=== PATIENT | female | born 1970 | race Caucasian/White ===

== ENCOUNTER 2019-05-10 08:46 | Inpatient (IN) ==
[2019-05-04 17:47] LABS: Appearance,Urine CLEAR; Bacteria,Urine 0 /hpf (0); Bilirubin,Urine NEG (NEG); Color,Urine YELLOW; Culture Indicated,Urine NO; Glucose,Urine (UA) NEGATIVE (NEG); Ketones,Urine NEG (NEG); Leukocyte Esterase,Urine NEG /uL (NEG); Mucus,Urine MANY /hpf (0); Nitrate,Urine NEG (NEG); Protein,Urine NEG (NEG); Urine Blood 0.2 mg/dL (<0.03); Urine RBC < 1 /hpf (0-1); Urine Squamous Epithelial Cell 3 /hpf (0-4); Urine WBC 1 /hpf (0-4); Urobilinogen,Urine NEG (NEG)
[2019-05-04 19:03] LABS: Basophils # (Auto) 0.05 K/mcL (0.00-0.30); Basophils % (Auto) 0.7 % (0.0-2.0); Eosinophils # (Auto) 0.09 K/mcL (0.00-0.70); Eosinophils % (Auto) 1.2 % (0.0-7.0); Granulocytes % (Auto) 62.3 % (38.0-78.0); Hematocrit 40.3 % (34.1-44.9); Lymphocytes % (Auto) 27.3 % (15.5-49.0); Mean Cell Volume 98.3 fL (80.0-100.0); Mean Corpuscular HGB Conc 32.3 g/dL (31.0-36.0); Mean Platelet Volume 10.3 fL (7.4-10.4); Monocytes # (Auto) 0.62 K/mcL (0.10-0.90); Monocytes % (Auto) 8.5 % (1.0-12.0); Platelet Count 279 K/mcL (140-440); Red Cell Distribution Width 11.8 % (11.5-14.5); WBC 7.3 K/mcL (4.50-11.00)
[2019-05-04 20:03] LABS: Blood Urea Nitrogen 11 mg/dl (6-20); Calcium 9.6 mg/dl (8.6-10.4); Carbon Dioxide 26 mmol/L (22-30); Chloride 102 mmol/L (96-108); Glomerular Filtration Rate 66; Glucose 92 mg/dL (70-105)
[2019-05-05 02:46] LABS: Estimated Average Glucose(eAG) 108 mg/dL; Hemoglobin A1C 5.4 % HGB (4.0-6.0)
[~2019-05-10 08:46] MED LIST: CELECOXIB 200 MG CAPSULE PO SCH; PREGABALIN 75 MG CAPSULE PO SCH; VANCOMYCIN 1,000 MG in 0.9 % SODIUM CHLORIDE 250 ML IV SCH; oxyCODONE 10 MG TAB.ER.12H PO SCH
[2019-05-10] MEDS ORDERED: ONDANSETRON 4 MG/2 ML VIAL IV ONE (11:10)
[2019-05-10] MEDS ORDERED: GLYCOPYRROLATE 0.2 MG/ML VIAL IV ONE (11:10)
[2019-05-10] MEDS ORDERED: PHENYLEPHRINE 10 MG/ML VIAL IV ONE (11:10)
[2019-05-10] MEDS ORDERED: PROPOFOL 200 MG/20 ML VIAL IV ONE (11:10)
[2019-05-10] MEDS ORDERED: KETAMINE 100 MG/ML ML IV ONE (11:10)
[2019-05-10] MEDS ORDERED: MIDAZOLAM 2 MG/2 ML VIAL IV ONE (11:10)
[2019-05-10] MEDS ORDERED: LIDOCAINE HCL/PF 100 MG/5 ML SYRINGE IV ONE (11:10)
[2019-05-10] MEDS ORDERED: TRANEXAMIC ACID 1,000 MG/10 ML VIAL IV ONE ×2 (11:10→12:35)
[2019-05-10] MEDS ORDERED: DEXAMETHASONE 10 MG/ML VIAL IV ONE (11:10)
[2019-05-10] MEDS ORDERED: ePHEDrine 50 MG/ML AMPUL IV ONE (11:10)
[2019-05-10] MEDS ORDERED: SUCCINYLCHOLINE 20 MG/ML ML IV ONE (11:10)
[2019-05-10] MEDS ORDERED: fentaNYL 100 MCG/2 ML VIAL IV ONE (11:10)
[2019-05-10] MEDS ORDERED: TEMAZEPAM 15 MG CAPSULE PO PRN (12:35)
[2019-05-10] MEDS ORDERED: POLYETHYLENE GLYCOL 3350 17 GM PACKET PO PRN (12:35)
[2019-05-10] MEDS ORDERED: BISACODYL 10 MG SUPP.RECT PR PRN (12:35)
[2019-05-10] MEDS ORDERED: BENZOCAINE/MENTHOL 1 LOZENGE PO PRN (12:35)
[2019-05-10] MEDS ORDERED: HYDROmorphone 2 MG/ML VIAL IV PRN (12:35)
[2019-05-10] MEDS ORDERED: MAGNESIUM HYDROXIDE 30 ML ORAL.SUSP PO PRN (12:35)
[2019-05-10] MEDS ORDERED: FLEETS ADULT ENEMA PR PRN (12:35)
[2019-05-10] MEDS ORDERED: ONDANSETRON 4 MG/2 ML VIAL IV PRN ×2 (12:35→13:07)
--- NOTE | 2019-05-10 12:35 | Brief Operative Note ---
Date of procedure: 05/10/19 Pre-op diagnosis: Right hip DJD Post-op diagnosis: same Procedure: Right anterior total hip arthroplasty Grafts/Implants: Yes (Depuy Actis 6 hi offset, +1 32 head, 50 cup, neutral liner) Anesthesia: spinal, GLMA Findings: arthritis Complications: none Surgeon: Ricki Marian Locomotive Supervisor: Isaiah Donnelly Estimated blood loss (cc): 300 Specimens Removed/Pathology: none sent Condition: stable Disposition: PACU
[2019-05-10] MEDS ORDERED: traMADol 50 MG TABLET PO PRN (12:38)
[2019-05-10] MEDS ORDERED: ceFAZolin 1 GM VIAL IV SCH (12:45)
--- NOTE | 2019-05-10 12:53 | XRay Report ---
CLINICAL INFORMATION: Intraoperative fluoroscopy and spot films TECHNIQUE: 0.2 minutes fluoroscopy utilized by Dr. Marina. Intraoperative spot films obtained FINDINGS: Intraoperative fluoroscopy and spot films utilized. Right total hip arthroplasty performed IMPRESSION: Intraoperative spot films and fluoroscopy as above Interpreted and Authenticated by: Tee Martinez 05/10/19
[2019-05-10] MEDS ORDERED: fentaNYL 100 MCG/2 ML VIAL IV PRN (13:07)
[2019-05-10] MEDS ORDERED: ACETAMINOPHEN 1,000 MG/100 ML BOTTLE IV ONE (13:07)
[2019-05-10] MEDS ORDERED: IPRATROPIUM/ALBUTEROL 3 ML AMPUL.NEB NEB PRN (13:07)
--- NOTE | 2019-05-10 13:13 | Operative Note ---
DATE OF OPERATION: 05/10/2019 PREOPERATIVE DIAGNOSIS: Right hip degenerative joint disease. POSTOPERATIVE DIAGNOSIS: Right hip degenerative joint disease. PROCEDURE PERFORMED: Right anterior total hip arthroplasty placing a DePuy Actis size 6 high offset femoral stem, +1 32 mm delta ceramic head ball, a 50 Colony cup a third neutral AltrX liner. SURGEON: Ricki Marina MD COUNTER ATTENDANT: Jose Donnelly PA-C. This provider's expertise and technical skill were required throughout the case. The PA assisted with preoperative coordination, intraoperative retraction, wound closure, dressing and splint application, as well as postoperative documentation and care coordination. ANESTHESIA: Spinal plus general. DRAINS: None. SPECIMENS: Femoral head which was discarded. BLOOD LOSS: 300 mL COMPLICATIONS: None. POSTOPERATIVE CONDITION: Stable. INDICATIONS FOR SURGERY: A 49-year-old female who has had longstanding progressive worsening severe right hip pain. Radiographs showed degenerative arthrosis with spurring. FINDINGS AT SURGERY: As above. Post implantation showed good overall component position with only mild limb lengthening. PROCEDURE IN DETAIL: The patient had been seen preoperatively. Informed consent obtained after discussion of risks and benefits of surgery. Risks including, but not limited to, bleeding; infection; injury to nerves, blood vessels, and other surrounding structures; anesthetic risks; incomplete or no resolution of symptoms; leg length discrepancy; dislocation; fracture; DVT and pulmonary embolus risks; and the possibility of needing further revision joint surgery. The patient understood these risks and wished to proceed. Correct operative site was marked and then spinal anesthesia given. The patient was then taken to the operating room and LMA general given. The patient was carefully transferred to the fracture table and then the operative hip was carefully prepped and draped in normal sterile fashion. Timeout was performed verifying patient name, operative site, and plan. Ioban was used to cover all skin surfaces. A standard anterior approach incision was made with a scalpel through skin and subcutaneous tissue. Hemostasis was obtained with Bovie cautery. Careful blunt dissection was taken down on the tensor fascia and then this was undermined circumferentially. IrriSept was irrigated and a ring retractor placed. Tensor fascia was incised in line with muscle fibers and then careful blunt dissection taken medial to the muscle belly. Blunt cobra retractors were placed on the superior and inferior femoral neck and then circumflex vessels were coagulated and cut and vastus fascia split distally. Anterior capsulectomy was performed and then the capsule releases. Corkscrew was placed in the femoral head. Prior to placement of the corkscrew we did take x-rays for joint point. Once a corkscrew was placed we used fluoroscopy to identify our approximate neck cut trajectory and then our femoral neck was cut with oscillating tip saw. Femoral head was removed and the acetabulum exposed. Labrum was excised circumferentially as well as soft tissue from the floor. We then irrigated with IrriSept. We then began sequentially reaming until 1 mm smaller than the final implant. We then opened the acetabular component. IrriSept was irrigated, after a minute pulse lavaged with saline and then the cup was impacted using the [id number]. Joint point was used to verify satisfactory cup position. A center hole cover was placed and then the acetabular liner was carefully aligned and impacted and carefully verified to be fully seated. We then released traction. The leg was externally rotated and released capsule around the medial neck. The leg was then extended and adducted. Capsule was released out towards greater trochanter and then the proximal femur was exposed. Box osteotome was used to gain canal entry and an awl was used to identify canal trajectory. Rongeur and rasp were used to lateralize and then we began sequentially broaching up to the final size. We calcar planed down onto the broach and then the neck trial and head ball were placed. The hip was reduced. Fluoro was brought in and x-rays taken, joint point was used to verify satisfactory position. We then re-dislocated and removed the trial implants. Definitive implants were opened. We then irrigated the femoral canal with IrriSept again, after a minute pulse lavaged with saline. The final stem was impacted and seated. We then opened the head ball. The stem was carefully cleaned and dried and the head ball was impacted. We then reduced the hip with satisfactory tension. Final fluoro images were taken and saved. We irrigated the joint with IrriSept, after a minute pulse lavaged with saline again and then closed the tensor fascia with two running #1 Vicryls, one running proximal, one running distal and a ring retractor was removed. Final IrriSept irrigation was done, after a minute final pulse lavage, and then fat was tacked to fascia with Vicryl and then 2-0 Monocryl for subcutaneous and venus for skin. Xeroform and sterile dressing were applied. The patient was then awakened, extubated, and transferred to recovery in stable condition. BJB:aniceto Job ID: [id number] Doc ID: [id number] Ricki Marina MD
[2019-05-10] MEDS ORDERED: LACTATED RINGERS 1,000 ML IV SCH (13:15)
--- NOTE | 2019-05-10 13:37 | XRay Report ---
CLINICAL INFORMATION: Postsurgical follow-up TECHNIQUE: AP pelvis. AP and cross table lateral right hip COMPARISON: Previous plain film examination dated 10/14/2017 FINDINGS: Status post right total hip arthroplasty. Normal anatomic alignment demonstrated. There is postsurgical gas. There are skin venus overlying the right hip IMPRESSION: Right total hip arthroplasty Interpreted and Authenticated by: Tee Martinez 05/10/19
[2019-05-10] MEDS: KETOROLAC 30 MG/ML VIAL IV PRN ×2 (13:38→20:43)
[2019-05-10] MEDS: 0.9 % SODIUM CHLORIDE 10 ML SYRINGE IV SCH ×2 (13:57→22:34)
[2019-05-10] MEDS: 0.9 % SODIUM CHLORIDE 1,000 ML IV SCH ×2 (14:07→22:07)
[2019-05-10] MEDS: oxyCODONE/APAP 5/325MG TABLET PO PRN ×2 (14:32→18:15)
[2019-05-10] MEDS: METHOCARBAMOL 750 MG TABLET PO PRN (15:47)
[2019-05-10] MEDS ORDERED: SENNOSIDES 1 TABLET PO SCH (21:00)
[2019-05-10] MEDS: buPROPion 150 MG TAB.SR.12H PO SCH (21:01)
[2019-05-10] MEDS: Methylphenidate Hcl [Ritalin] 20 mg Tab PO SCH (21:02)
[2019-05-10] MEDS: ASPIRIN 81 MG TAB.CHEW PO SCH (21:02)
[2019-05-10] MEDS: DOCUSATE SODIUM 100 MG CAPSULE PO SCH (21:02)
[2019-05-10] MEDS ORDERED: VANCOMYCIN 1,000 MG in 0.9 % SODIUM CHLORIDE 250 ML IV ONE (22:30)
[2019-05-11] MEDS: KETOROLAC 30 MG/ML VIAL IV PRN (04:31)
[2019-05-11] MEDS: METHOCARBAMOL 750 MG TABLET PO PRN (04:43)
[2019-05-11] MEDS: 0.9 % SODIUM CHLORIDE 1,000 ML IV SCH (04:51)
[2019-05-11] MEDS: oxyCODONE/APAP 5/325MG TABLET PO PRN ×2 (05:50→10:14)
[2019-05-11] MEDS: 0.9 % SODIUM CHLORIDE 10 ML SYRINGE IV SCH (05:54)
--- NOTE | 2019-05-11 07:04 | Discharge Summary ---
Providers - Providers Patient information: Note initiated : 05/11/19 at 7:02 am Service Date, if different from initiated Date: [] Patient: July Machuca 49 y/o F admitted on 05/10/19 for Right Total Hip Arthroplasty. Chief Complaint: [] Discharge date: 05/11/19 Hospitalization Hospital Course: Pt was admitted for a R DEVIN. Pt underwent procedure on day of admission. Pt stayed one night on the floor for IV pain meds IV abx and PT. Pt will take ASA for DVT prophylaxis. f/u in 2 weeks. Discharge diagnosis: R hip labral tear, OA Exam - Exam Clean and dry: Yes Weight bearing status: as tolerated Ortho Discharge - TKA - Patient Instructions Diet: Regular Diet Activity: activity as tolerated Total Knee Protocol: For Total Knee: Start ROM EMANUEL with stationary bike or rocking chair. Work on gaining full exte nsion of knee. Posterior dislocation precautions provided. Hip abductor strengthening and gait training instructions provided. Apply Cryocuff as instructed. Dressing Care: May shower in 2 days - Follow Up Plan Disposition: Home, Self-Care Prognosis: Good Rehab Potential: Good Overall status at discharge: patient is progressing back to baseline - Orders For Discharge Prescriptions: Aspirin [Adult Low Dose Aspirin EC] 81 mg PO BID #60 tablet.dr Transmission Status: Received by [id number] HYDROcodone/ACETAMINOPHEN [Hydrocodone-Acetamin 10-325 mg] 1 - 2 tab PO Q6 #75 tab Prescription Printed Additional Discharge Orders: Physical Therapy at Discharge - General Location: None Selected Walker Location: None Selected Pending Studies Resuscitation Status Full Code Diet Regular Diet Start WedMay 10 1236 Aspirin (Aspirin) 81 mg PO BID [facility] Last Admin: 05/10/19 21:02 Dose: 81 mg Documented by: MICKI Bupropion HCl (Wellbutrin Sr) 150 mg PO BID [facility] Last Admin: 05/10/19 21:01 Dose: 150 mg Documented by: MICKI Docusate Sodium (Colace) 100 mg PO BID [facility] Last Admin: 05/10/19 21:02 Dose: 100 mg Documented by: MICKI Hydromorphone HCl (Dilaudid) 0 mg IV Q2HP PRN PRN Reason: PAIN LEVEL > 6 Last Admin: 05/10/19 14:05 Dose: 1 mg Documented by: [id number] Sodium Chloride (Sodium Chloride 0.9%) 1,000 mls @ 125 mls/hr IV .Q8H LETY Last Admin: 05/11/19 04:51 Dose: Not Given Documented by: Infusion: 05/11/19 04:51 Dose: 0 mls/hr Documented by: Admin: 05/10/19 22:07 Dose: 125 mls/hr Documented by: Infusion: 05/10/19 22:07 Dose: 125 mls/hr Documented by: Admin: 05/10/19 14:07 Dose: 125 mls/hr Documented by: [id number] Ketorolac Tromethamine (Toradol) 30 mg IV Q6HP PRN PRN Reason: Pain Stop: 05/12/19 12:37 Last Admin: 05/11/19 04:31 Dose: 30 mg Documented by: Admin: 05/10/19 20:43 Dose: 30 mg Documented by: Admin: 05/10/19 13:38 Dose: 30 mg Documented by: [id number] Methocarbamol (Henryaxin) 750 mg PO DAILYP PRN PRN Reason: Muscle Spasm Last Admin: 05/11/19 04:43 Dose: 750 mg Documented by: Admin: 05/10/19 15:47 Dose: 750 mg Documented by: [id number] Oxycodone/Acetaminophen (Percocet 5-325 Mg) 0 tab PO Q4HP PRN PRN Reason: PAIN LEVEL 3-6 Last Admin: 05/11/19 05:50 Dose: 2 tab Documented by: Admin: 05/10/19 18:15 Dose: 2 tab Documented by: [email or web address] Admin: 05/10/19 14:32 Dose: 2 tab Documented by: [id number] Methylphenidate Hcl ([Ritalin] 20 Mg Tab) 1 dose PO BID LETY Last Admin: 05/10/19 21:02 Dose: Not Given Documented by: MICKI Phillips (Senokot) 2 tab PO HS [facility] Last Admin: 05/10/19 21:01 Dose: 2 tab Documented by: MICKI Sodium Chloride (Saline Flush) 10 ml IV Q8 LETY Last Admin: 05/11/19 05:54 Dose: 10 ml Documented by: Admin: 05/10/19 22:34 Dose: Not Given Documented by: Admin: 05/10/19 13:57 Dose: Not Given Documented by: [id number] Temazepam (Restoril) 15 mg PO HSP PRN PRN Reason: Insomnia Last Admin: 05/10/19 22:06 Dose: 15 mg Documented by: MICKI Tramadol HCl (Ultram) 50 mg PO BIDP PRN PRN Reason: Pain Last Admin: 05/11/19 00:11 Dose: 50 mg Documented by: MICKI Shift Summary 05/11/19 04:59 Shift Summary by Gail Childers Patient alert and oriented x4. Medicated for pain with Toradol IV x2, Ultram x1 for pain 8-9/10 and Robaxin PO x1 for muscle spasm with moderate effect. Patient was able to sleep for few hours. Patient eating and drinking adequately, IVF discontinued. Up with FWW, gait belt and standby assist to the bathroom. Had to straight catheter patient last night for bladder scan of 530 mls. Drained 550 mls from straight catheter. Patient voided after that 450 mls, PVR 188 mls. Uses IS 1500 level. Right hip dressing with shadow drainage. BP on the low side. 87/53mmHg at midnight. This morning, BP 94/51 mmHg. Patient asymptomatic. Initialized on 05/11/19 04:59 - END OF NOTE
[2019-05-11] MEDS ORDERED: OMEPRAZOLE 20 MG CAPSULE PO SCH (07:30)
[2019-05-11] MEDS: buPROPion 150 MG TAB.SR.12H PO SCH (07:45)
[2019-05-11] MEDS: ASPIRIN 81 MG TAB.CHEW PO SCH (07:45)
[2019-05-11] MEDS: DOCUSATE SODIUM 100 MG CAPSULE PO SCH (07:45)
[2019-05-11] MEDS: Methylphenidate Hcl [Ritalin] 20 mg Tab PO SCH (07:45)
[2019-05-11] MEDS ORDERED: FLU VACC QS2019-20(6MOS UP)/PF 60 MCG/0.5 ML SYRINGE IM ONE (10:00)
== END 2019-05-11 12:00 | disposition home or self-care (01) | DRG 470 ==
LOC: MEDSUR 08:46
PROVIDERS: ADMIT Orthopaedic Surgery; ATTEND Orthopaedic Surgery